=== PATIENT | female | born 1995 | race Caucasian/White ===

== ENCOUNTER 2024-09-27 10:14 | Outpatient (AMB) | payer OTHER, MEDICAID, SELFPAY ==
[2024-09-27 10:27] VITALS: BP 114/76; PULSE 72; RESP 18; TEMP 35.7; O2SAT 97; BMI 26.1
--- NOTE | 2024-09-27 10:27 | OBCLNT_ITS ---
Vital Signs 09/27/24 10:27 Height 1.63 m Height Method Stated Weight 69.003 kg Weight Measurement Method Standing Scale BMI 26.1 BP 114/76 Blood Pressure Source Automatic Cuff Blood Pressure Location Left Upper Arm Position Sitting Respiration 18 Pulse 72 Pulse Source Monitor Temp 96.2 F L Temp Source Oral Pulse Oximetry (%) 97 Oxygen Delivery Method Room Air Allergies/Home Meds Allergies & Medications Allergies No Known Allergies Allergy (Verified 09/27/24 10:28) Medication Reconciliation No Known Home Medications 09/27/24 [History Confirmed 09/27/24] Intake Visit Data Collection New Patient or Established: New Patient (never been to [facility]) Reason for Visit:: OB INITAL Seen by Clinical Staff ONLY (RN/MA): No Environmental Engineering Professor Required: No Do You Feel Safe at Home: Yes Authorities Contacted: N/A PCP or OBGYN visit in last 3 months: Yes Hx Now: Yes Are you currently on any form of Control: No Last menstrual period: 02/14/24 Pain Present Currently: No Pain Scale Used: Issa-Hill/Numerical Pain scale:: 0 Smoking Status Smoking Status: Never smoker Questionnaires Covid-19 Vaccine Questionnaire Has patient been vacinated for Covid-19 Have you been vacinated for Covid-19: No PHQ-9 PHQ-2 Over the last 2 weeks, how often have you been bothered by any of the following problems? 1. Little interest or pleasure in doing things: not at all 2. Feeling down, depressed, or hopeless: not at all Total score: 0 PHQ-9 3. Trouble falling or staying asleep, or sleeping too much: Not at all 4. Feeling tired or having little energy: Not at all 5. Poor appetite or overeating: Not at all 6. Feeling bad about yourself - or that you are a failure or have let yourself or your family down: Not at all 7. Trouble concentrating on things, such as reading the newspaper or watching television: Not at all 8. Moving or speaking so slowly that other people could have noticed? - Or the opposite - being so fidgety or restless that you have been moving around a lot more than usual: not at all 9. Thoughts that you would be better off or of hurting yourself in some way: Not at all Total score: 0 If you checked off any problems, how difficult have these problems made it for you to do your work, take care of things at home, or get along with other people?: not difficult at all Source: Developed by Drs. Cleveland Dorsey, Kaylee Kimble, Jean-Paul Irene and colleagues, with an educational emre from [employer]. 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 Tobacco History Smoking Status: Never smoker Second Hand Smoke Exposure: No Alcohol History Alcohol Intake: Never Domestic Abuse History Do You Feel Safe at Home: Yes History of Present Illness HPI Narrative The patient is a 28-year-old G1, P0 with a natural Di Di twin transferring care from [facility]. Her due date is 11/20/2024 she is 32 weeks . She just had an ultrasound last week at [facility] revealing both babies to be vertex 1 baby weighed 3 pounds 5 ounces the other 3 pounds 3 ounces I have her records from [facility] and they are up-to-date and on the chart. Today patient denies contractions loss of fluids bleeding she has not been given steroids yet. She is on vitamins iron and folic acid daily. She has not had a hemoglobin checked in a while. She would like to deliver vaginally if at all possible. OB Ultrasound Indication Indication: Position, heart tones Both babies VTX Both have FHTs in 130s-140s OB Ultrasound Ultrasound technique: transabdominal Gestational sac assessment: Presence, location, size, shape: There is a diamniotic dichorionic twin present both in the vertex presentation cardiac activity noted in 1 twin at 147 the other twin at 154 bpm. TEACHER TUTOR: Past Medical History Additional Operations/Hospitalizations (year & reason): Patient denies any hospitalizations Other Relevant History: Patient denies any significant past medical history OB Initial Visit OB Flowsheet OB Flowsheet Initial Weight: Not Recorded Date -?-?-?-?-?-?-?-?-?-?-?-?- EGA Weight BP Alb Glu CTX Pres Fundal ht FHR Mov Dilation Station Effacement Hx Notes Visit Note 09/27/24 -?-?-?-?-?-?-?-?-?-?-?-?- 32w 2d 69.003 kg 114/76 cephalic 36 130 Di/Di twin s both VTX +FM x 2, no UCs Menstrual History Menstrual reliability: definite Flow: normal Menstrual regularity: regular Monthly: Yes Age at menarche: 15 On control pills at conception: No OB History : 1 Para: 0 Hx # Pregnancies: 0 Hx Total # of Abortions (Spontaneous & Elective): 0 # of Living Children: 0 Infection History & Risk Evaluation History of STDs: none HIV risk evaluation: low risk Hepatitis B risk evaluation: low risk Patient or partner has history of Genital Herpes: No Varicella/chicken pox status: immunized Genetic Screening & History Genetic Screening/Teratology Counseling - Includes patient, baby's father, or anyone in either family with: 1. Patient's age 35 years or older as of estimated date of delivery: No 2. Thalassemia (Maltese, Welsh, Mediterranean, or Background); MCV less than 80: No 3. Neural Tube Defect (Meningomyelocele, Spina Bifida, or Anencephaly): No 4. Congenital Heart Defect: No 5. Down Syndrome: No 6. John-Sachs (Ashkenazi Tenriism, Cajun, Malian Turkish): No 7. Jose R Disease (Ashkenazi Tenriism): No 8. Familial Dysautonomia (Ashkenazi Tenriism): No 9. Sickle Cell Disease or Trait (): No 10. Hemophilia or other blood disorders: No 11. Muscular Dystrophy: No 12. Cystic Fibrosis: No 13. Rodney's Chorea: No 14. Mental Retardation/Autism: No 15. Other inherited genetic or chromosomal disorder: No 16. Maternal Metabolic Disorder (EG,TYPE 1 Diabetes, PKU): No 17. Patient or baby's father had a child with defects not listed above: No 18. Recurrent loss or a stillbirth: No 19. Medications (including supplements, vitamins, herbs or otc drugs)/illicit/recreational drugs/alcohol since last menstrual period: No 20. Any other: No Infection History 1. Live with someone with TB or exposed to TB: No 2. Rash or viral illness since last menstrual period: No 3. Hepatitis B,C: No Other (see comments) Source: [employer] [place] [employer] Office Procedures OB Clinic LOC & Office Proc's Nursing/Assessment Patient Status: Initial/New Patient OB Clinic Nursing Assessment: Medication Reconciliation, Update PMH in EMR and Vital Signs OB Clinic Coordination of Care: Complex Care and Chronic Disease 1-5, Education Complex Pt/Fam, Consent,records obtained, informed consent, Lab and Imaging orders, Results/Orders obtained and Staff clarify orders Special Needs: Heart tones New Patient Charge New Patient Point Assignment: [id number] New Patient Point Charge: DUST BOX WORKER Level 4 ([id number]) Assessment & Plan Diagnosis / Problem List (1) : Status: Acute Qualifiers: Weeks of gestation: 32 weeks Qualified Code(s): Z3A.32 - 32 weeks gestation of Assessment and Plan: labs up-to-date in the chart patient is B+ antibody screen negative hepatitis B surface antigen negative RPR nonreactive HIV negative gonorrhea chlamydia -1-hour glucose was normal at 109. NIPT was negative. Hemoglobin A1c 4.8. Hepatitis C antibody negative urinalysis negative. (2) Supervision of high risk in third trimester: Status: Acute (3) Dichorionic diamniotic twin gestation: Status: Acute Qualifiers: Trimester: third trimester Qualified Code(s): O30.043 - Twin , dichorionic/diamniotic, third trimester Assessment and Plan: Patient is 32 weeks with a dichorionic diamniotic twin . Will start NSTs at 34 weeks. If patient goes to triage she is to get steroids. If not she will get them at 34 weeks. She does desire a vaginal delivery. Risk of transfusion was explained to the patient in detail risk of bleeding. The fact the patient will need to deliver in the operating room with a double set up was explained. All questions were answered. Patient will follow-up weekly in my office. We will check a CBC today. She has another ultrasound scheduled with [facility] 10/19/2024. (4) Anemia affecting : Status: Acute Qualifiers: Trimester: third trimester Qualified Code(s): O99.013 - Anemia complicating , third trimester
== END 2024-09-27 11:08 | disposition home or self-care (01) ==
LOC: HODSOBC 10:14
PROVIDERS: Supervising Provider Obstetrics & Gynecology; Visit Provider Obstetrics & Gynecology
DX: O09.893 Supervision of other high risk pregnancies, third trimester (principal); Z3A.32 32 weeks gestation of pregnancy; O30.043 Twin pregnancy, dichorionic/diamniotic, third trimester; O99.013 Anemia complicating pregnancy, third trimester
CPT/HCPCS: 99204; G0463

== ENCOUNTER 2024-10-06 10:44 | Outpatient (AMB) | payer OTHER, MEDICAID, SELFPAY ==
[2024-10-06 11:31] VITALS: BP 124/77; PULSE 81; RESP 19; TEMP 36.7; O2SAT 96; BMI 26.9
--- NOTE | 2024-10-06 11:31 | OBCLNT_ITS ---
Vital Signs 10/06/24 11:31 Height 1.63 m Height Method Stated Weight 71.384 kg Weight Measurement Method Standing Scale BMI 26.9 BP 124/77 Blood Pressure Source Automatic Cuff Blood Pressure Location Right Upper Arm Position Sitting Respiration 19 Pulse 81 Pulse Source Monitor Temp 98.0 F Temp Source Temporal Artery Scan Pulse Oximetry (%) 96 Oxygen Delivery Method Room Air Allergies/Home Meds Allergies & Medications Allergies No Known Allergies Allergy (Verified 10/06/24 12:25) Intake Visit Data Collection New Patient or Established: Established Patient (seen at [facility] within 3 years) Reason for Visit:: FOLLOW UP OBC Procurement Engineer Required: No Do You Feel Safe at Home: Yes Authorities Contacted: N/A PCP or OBGYN visit in last 3 months: Yes Date of Last PCP or OBGYN visit: 09/27/24 Hx Now: Yes Are you currently on any form of Control: No Pain Present Currently: No Smoking Status Smoking Status: Never smoker Questionnaires PHQ-9 PHQ-2 Over the last 2 weeks, how often have you been bothered by any of the following problems? 1. Little interest or pleasure in doing things: not at all PHQ-9 8. Moving or speaking so slowly that other people could have noticed? - Or the opposite - being so fidgety or restless that you have been moving around a lot more than usual: not at all Source: Developed by Drs. Cleveland Dorsey, Kaylee Kimble, Jean-Paul Irene and colleagues, with an educational emre from [employer]. 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 Tobacco History Smoking Status: Never smoker Second Hand Smoke Exposure: No Alcohol History Alcohol Intake: Never Domestic Abuse History Do You Feel Safe at Home: Yes Care OB Visit Log OB Flowsheet Initial Weight: Not Recorded Date -?-?-?-?-?-?-?-?-?-?-?-?- EGA Weight BP Alb Glu CTX Pres Fundal ht FHR Mov Dilation Station Effacement Hx Notes Visit Note 09/27/24 -?-?-?-?-?-?-?-?-?-?-?-?- 32w 2d 69.003 kg 114/76 cephalic 36 130 Di/Di twin s both VTX +FM x 2, no UCs 10/06/24 -?-?-?-?-?-?-?-?-?-?-?-?- 33w 4d 71.384 kg 124/77 cephalic 37 140 active Di/d i twins both vertex Plus movement occasional contractions some spotting. Sent over to OB triage for further evaluation. MARYELLEN Calculator Estimated Delivery Date Method Current WG Current Estimate 11/20/24 LMP (Certain) 33w 4d Other Estimates 11/15/24 Ultrasound #1 34w 2d Comments: 28-year-old G1, P0 Natural diamniotic/ dichorionic twins Transfer of care to Dr. Coleman at 32 weeks Have records on chart: B +/antibody screen negative/rubella immune/RPR nonreactive/HIV negative/hepatitis B surface antigen negative/GC chlamydia negative/NIPT normal/1 hour glucose 109 Patient referred to MFM's for ultrasounds. On chart. Expected Delivery Route/Plan Patient desires to deliver vaginally if possible. Discussed double set up in OR. Discussed possibility of emergency . Discussed scheduled if the babies are different size and not vertex. Specific Issue/Plans Dichorionic diamniotic twins Notes Visit Date: 10/06/24 Last Updated by: Mindi Donohue (OB Clinic)MD Has repeat growth ultrasound with maternal- medicine 10/20/2023. Office Procedures OB Clinic LOC & Office Proc's Nursing/Assessment Patient Status: Established Patient OB Clinic Nursing Assessment: BP Monitoring, Medication Reconciliation, Update PMH in EMR and Vital Signs OB Clinic Coordination of Care: Complex Care and Chronic Disease 1-5, Consent,records obtained, informed consent, Lab and Imaging orders and Results/Orders obtained Special Needs: Heart tones Established Patient Charge Established Patient Point Assignment: 125 Established Patient Point Charge: EP Level 4 (120-155) Assessment & Plan Diagnosis / Problem List (1) Dichorionic diamniotic twin gestation: Status: Acute Qualifiers: Trimester: third trimester Qualified Code(s): O30.043 - Twin , dichorionic/diamniotic, third trimester Assessment and Plan: Sent over to OB triage for steroids and NST. Return in 24 hours. Schedule NSTs weekly starting next week. (2) Anemia affecting : Status: Acute Qualifiers: Trimester: third trimester Qualified Code(s): O99.013 - Anemia complicating , third trimester Assessment and Plan: Increase daily iron. (3) Supervision of high risk in third trimester: Status: Acute (4) : Status: Acute Qualifiers: Weeks of gestation: 34 weeks Qualified Code(s): Z3A.34 - 34 weeks gestation of
== END 2024-10-06 11:49 | disposition home or self-care (01) ==
LOC: HODSOBC 10:44
PROVIDERS: PCP Obstetrics & Gynecology; Referring Provider Obstetrics & Gynecology; Supervising Provider Obstetrics & Gynecology; Visit Provider Obstetrics & Gynecology
DX: O09.893 Supervision of other high risk pregnancies, third trimester (principal); O30.043 Twin pregnancy, dichorionic/diamniotic, third trimester; O99.013 Anemia complicating pregnancy, third trimester; Z3A.33 33 weeks gestation of pregnancy
CPT/HCPCS: 99214; G0463

== ENCOUNTER 2024-10-06 12:07 | Observation (INO) | payer BC, MEDICAID, SELFPAY ==
[2024-10-06] VITALS (11 sets, daily range): BP systolic 111; BP diastolic 76; PULSE 64–85; RESP 18–98; TEMP 36.8; O2SAT 97–100; BMI 27.1
[2024-10-06] MEDS: BETAMET ACET/BETAMET NA PH (Celestone) 6 MG/ML VIAL 12 MG IM (12:30)
== END 2024-10-06 13:15 | disposition home or self-care (01) ==
PROVIDERS: Admitting Provider Obstetrics & Gynecology; Visit Provider Obstetrics & Gynecology
DX: Z34.03 Encounter for supervision of normal first pregnancy, third trimester (principal); Z3A.33 33 weeks gestation of pregnancy
CPT/HCPCS: 59899; 87081; 96372; J0702

== ENCOUNTER 2024-10-07 13:15 | Outpatient (CLI) | payer BC, MEDICAID, SELFPAY ==
[2024-10-07 13:45] VITALS: BP 115/68; PULSE 85; RESP 18; RESP 98; TEMP 36.9
[2024-10-07] MEDS: BETAMET ACET/BETAMET NA PH (Celestone) 6 MG/ML VIAL 12 MG IM (14:32)
== END 2024-10-07 14:35 | disposition home or self-care (01) ==
LOC: S4S1 13:16 → S4SX 13:16
PROVIDERS: Referring Provider Obstetrics & Gynecology; Visit Provider Obstetrics & Gynecology
DX: Z34.03 Encounter for supervision of normal first pregnancy, third trimester (principal); Z36.9 Encounter for antenatal screening, unspecified; Z3A.33 33 weeks gestation of pregnancy
CPT/HCPCS: 59025; 96372; J0702

== ENCOUNTER 2024-10-13 10:45 | Outpatient (AMB) | payer BC, MEDICAID, SELFPAY ==
--- NOTE | 2024-10-13 11:58 | AMB.OBVISIT ---
Vital Signs 10/13/24 12:00 Weight 70.874 kg Weight Measurement Method Standing Scale BP 125/84 Blood Pressure Source Automatic Cuff Blood Pressure Location Left Upper Arm Position Sitting Respiration 18 Pulse 74 Pulse Source Monitor Temp 97.2 F Temp Source Oral Pulse Oximetry (%) 99 Oxygen Delivery Method Room Air Allergies/Home Meds Allergies & Medications Allergies No Known Allergies Allergy (Verified 10/13/24 12:58) Medication Reconciliation vits no.130-ferrous fum 27 mg iron-folic acid 800 mcg tablet ( Vitamin) 1 tab PO .q day 10/06/24 [History Confirmed 10/13/24] Intake Visit Data Collection New Patient or Established: Established Patient (seen at [facility] within 3 years) Reason for Visit:: OBC Seen by Clinical Staff ONLY (RN/MA): No Business Operations Director Required: No Do You Feel Safe at Home: Yes Authorities Contacted: N/A PCP or OBGYN visit in last 3 months: Yes Date of Last PCP or OBGYN visit: 10/07/24 Hx Now: Yes Are you currently on any form of Control: No Pain Present Currently: No Pain Scale Used: Issa-Hill/Numerical Pain scale:: 0 Smoking Status Smoking Status: Never smoker Questionnaires Covid-19 Vaccine Questionnaire Has patient been vacinated for Covid-19 Have you been vacinated for Covid-19: No PHQ-9 PHQ-2 Over the last 2 weeks, how often have you been bothered by any of the following problems? 1. Little interest or pleasure in doing things: not at all 2. Feeling down, depressed, or hopeless: not at all Total score: 0 PHQ-9 3. Trouble falling or staying asleep, or sleeping too much: Not at all 4. Feeling tired or having little energy: Not at all 5. Poor appetite or overeating: Not at all 6. Feeling bad about yourself - or that you are a failure or have let yourself or your family down: Not at all 7. Trouble concentrating on things, such as reading the newspaper or watching television: Not at all 8. Moving or speaking so slowly that other people could have noticed? - Or the opposite - being so fidgety or restless that you have been moving around a lot more than usual: not at all 9. Thoughts that you would be better off or of hurting yourself in some way: Not at all Total score: 0 If you checked off any problems, how difficult have these problems made it for you to do your work, take care of things at home, or get along with other people?: not difficult at all Source: Developed by Drs. Cleveland Dorsey, Kaylee Kimble, Jean-Paul Irene and colleagues, with an educational emre from [employer]. 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 Tobacco History Smoking Status: Never smoker Second Hand Smoke Exposure: No Alcohol History Alcohol Intake: Never Domestic Abuse History Do You Feel Safe at Home: Yes Care OB Visit Log OB Flowsheet Initial Weight: Not Recorded Date <del>?</del> EGA Weight BP Alb Glu CTX Pres Fundal ht FHR Mov Dilation Station Effacement Hx Notes Visit Note 09/27/24 <del>?</del> 32w 2d 69.003 kg 114/76 cephalic 36 130 Di/Di twins both VTX +FM x 2, no UCs 10/06/24 <del>?</del> 33w 4d 71.384 kg 124/77 cephalic 37 140 active Di/di twins both vertex Plus movement occasional contractions some spotting. Sent over to OB triage for further evaluation. 10/13/24 <del>?</del> 34w 4d 70.874 kg 125/84 cephalic 39 135 active DI/Di twins. VTX/Transverse +FM No UC +pressure To L and D for monitoring MARYELLEN Calculator Estimated Delivery Date Method Current WG Current Estimate 11/20/24 LMP (Certain) 34w 4d Other Estimates 11/15/24 Ultrasound #1 35w 2d Expected Delivery Route/Plan All care with Dr. Coleman until 32 weeks when patient was transferred to our clinic . The patient desires to deliver vaginally if possible. Discussed double set up in OR. Discussed possibility of emergency . Discussed scheduled if the babies are different size and not vertex. Specific Issue/Plans PNC Records: B+\antibody negative\rubella immune\RPR nonreactive\HIV negative\hepatitis B surface antigen negative Dichorionic diamniotic twins Notes Visit Date: 10/13/24 Last Updated by: Mindi Donohue (OB Clinic)MD Has an MFM ultrasound 10/20/2023 to L&D today to get monitored check her strep status and get size and positioning on the baby's NSTs next week. Visit Date: 10/06/24 Last Updated by: Mindi Donohue (OB Clinic)MD Has repeat growth ultrasound with maternal- medicine 10/20/2023. Office Procedures OB Clinic LOC & Office Proc's Nursing/Assessment Patient Status: Established Patient OB Clinic Nursing Assessment: Medication Reconciliation, Update PMH in EMR and Vital Signs OB Clinic Coordination of Care: Education Complex Pt/Fam, Consent,records obtained, informed consent, Lab and Imaging orders, Results/Orders obtained and Staff clarify orders Special Needs: Heart tones Established Patient Charge Established Patient Point Assignment: 115 Established Patient Point Charge: EP Level 3 (80-115)
[2024-10-13 12:00] VITALS: BP 125/84; PULSE 74; RESP 18; TEMP 36.2; O2SAT 99
== END 2024-10-13 12:24 | disposition home or self-care (01) ==
LOC: HODSOBC 10:45
PROVIDERS: PCP Obstetrics & Gynecology; Referring Provider Obstetrics & Gynecology; Supervising Provider Obstetrics & Gynecology; Visit Provider Obstetrics & Gynecology
DX: O09.893 Supervision of other high risk pregnancies, third trimester (principal); Z3A.34 34 weeks gestation of pregnancy; O30.043 Twin pregnancy, dichorionic/diamniotic, third trimester
CPT/HCPCS: 99213; G0463

== ENCOUNTER 2024-10-13 12:39 | Observation (INO) | payer BC, MEDICAID, SELFPAY ==
[2024-10-13] VITALS (31 sets, daily range): BP systolic 125; BP diastolic 84; PULSE 65–98; RESP 18–97; TEMP 37.4; O2SAT 92–98; BMI 26.8
--- NOTE | 2024-10-13 13:12 | XR_ITS ---
Examination: Complete OB ultrasound greater than 14 weeks, twin A Date and time of exam: October 13, 2024 1401 hours INDICATIONS: Twin gestations unknown presentation Findings: Viable twin A cephalic presentation Cardiac motion 140 BPM Placenta anterior grade 3 Umbilical cord insertion seen Amniotic fluid index 9.9 cm Mild right hydronephrosis spine maternal left Cervix 3.1 cm Ovaries are obscured by bowel gas Composite estimated gestational age based on BPD, head circumference, abdominal circumference, femur length is 35 weeks 3 days Estimated weight 2508 g Survey of intracranial anatomy, spinal anatomy, abdominal anatomy, four-chamber heart performed with no abnormalities identified. Impression: Viable twin A cephalic presentation. Examination: Complete OB ultrasound greater than 14 weeks twin B Date and time of exam: October 13, 2024 1404 hours INDICATIONS: Twin gestations, and noted presentation Findings: Viable twin B breech presentation Cardiac motion 133 BPM Placenta anterior grade 3 Vessel CORD insertion seen Amniotic fluid index 9.9 cm spine maternal right Cervix 3.1 cm Ovaries are obscured by bowel gas Composite estimated gestational age based on BPD, head circumference, abdominal circumference, femur length is 32 weeks 6 days Estimated weight 2037 g. Survey of intracranial anatomy, spinal anatomy, abdominal anatomy, four-chamber heart performed with no abnormalities identified. Impression: Viable twin B breech presentation.
--- NOTE | 2024-10-13 13:32 | XR_ITS ---
Examination: Biophysical profile, ultrasound TWIN A Date and time of exam: October 13, 2024 1349 hours INDICATIONS: Twin gestations, unknown presentation Technique: Multiple transabdominal sonographic images of the pelvis abdomen obtained. Attention is directed to the breathing movement, gross body movement, amniotic fluid volume and tone. Findings: Amniotic fluid index 11.2 cm Total biophysical profile is 8 of 8. breathing movement is 2. Gross body movement is 2. tone is 2. Qualitative amniotic fluid volume is 2 Impression: Biophysical profile is 8 of 8. Twin A Examination: Biophysical profile, ultrasound twin B INDICATIONS: Twin gestations unknown presentation Date and time of exam: October 13, 2024 1359 hours INDICATIONS: Unknown presentation Technique: Multiple transabdominal sonographic images of the pelvis abdomen obtained. Attention is directed to the breathing movement, gross body movement, amniotic fluid volume and tone. Findings: Amniotic fluid index 11.2 cm Total biophysical profile is 8 of 8. breathing movement is 2. Gross body movement is 2. tone is 2. Qualitative amniotic fluid volume is 2 Impression: Biophysical profile is 8 of 8. Twin B
--- NOTE | 2024-10-13 15:55 | PRELIM_ITS ---
Obstetric twin ultrasound. October 13, 2024 at 1349 hours Clinical history: dec FM, 34w4d, di/di twins Technique: Real-time ultrasound was performed using Duplex scanning including arterial inflow, venous outflow, color and spectral Doppler analysis of both ovaries. Comparison: No prior study is available for comparison. Findings: There is twin intrauterine gestation with live fetuses. Twin A: There is a gravid uterus with a live fetus in cephalic presentation of mean gestational age 35 weeks and 3 days (by biometry). cardiac activity is present at a heart rate of 140 beats per minute. The placenta is anterior in location, maturity grade III. There is no evidence of placenta previa or retroplacental hemorrhage. Amniotic fluid is adequate (RAYMOND = 9.9 cm). Estimated weight is 2508.1 grams+/- 371 grams. Estimated due date by ultrasound is 11/14/2024. right kidney: There is mild right hydronephrosis (image 13, 14/96). Biometry: BPD = 9.10 cm (36 weeks 6 days) HC = 32.97 cm (37 weeks 4 days) AC = 31.20 cm (35 weeks 1 day) FL = 6.21 cm (32 weeks 1 day) The cervical length measures 3.1 cm. Biophysical Profile: Breathing : 2 Tone : 2 Amniotic fluid : 2 Movement : 2 BPP Score : 8/8 Twin B: There is a gravid uterus with a live fetus in breech presentation of mean gestational age 32 weeks and 6 days (by biometry). cardiac activity is present at a heart rate of 133 beats per minute. The placenta is anterior in location, maturity grade III. There is no evidence of placenta previa or retroplacental hemorrhage. Amniotic fluid is adequate (RAYMOND = 9.9 cm). Estimated weight is 2037.3 grams+/- 302 grams. Estimated due date by ultrasound is 12/02/2024. Biometry: BPD = 8.04 cm (32 weeks 2 days) HC = 30.53 cm (34 weeks 0 days) AC = 29.05 cm (33 weeks 0 days) FL = 6.14 cm (31 weeks 6 days) The cervical length measures 3.1 cm. Biophysical Profile: Breathing : 2 Tone : 2 Amniotic fluid : 2 Movement : 2 BPP Score : 8/8 Impression: Twin A: Gravid uterus with a single live fetus in cephalic presentation of mean gestational age 35 weeks and 3 days. Mild right hydronephrosis ( right kidney). Normal biophysical profile as recorded by the lead radiologic technologist. Twin B: Gravid uterus with a single live fetus in breech presentation of mean gestational age 32 weeks and 6 days. Normal biophysical profile as recorded by the lead radiologic technologist. Report Electronically Signed By: Nicolás Snowden 10/13/2024 3:54:47 PM [EST]
--- NOTE | 2024-10-13 16:40 | PRELIM_ITS ---
Obstetric twin ultrasound. October 13, 2024 at 1349 hours Clinical history: dec FM, 34w4d, di/di twins Technique: Real-time ultrasound was performed using Duplex scanning including arterial inflow, venous outflow, color and spectral Doppler analysis of both ovaries. Comparison: No prior study is available for comparison. Findings: There is twin intrauterine gestation with live fetuses. Twin A: There is a gravid uterus with a live fetus in cephalic presentation of mean gestational age 35 weeks and 3 days (by biometry). cardiac activity is present at a heart rate of 140 beats per minute. The placenta is anterior in location, maturity grade III. There is no evidence of placenta previa or retroplacental hemorrhage. Amniotic fluid is adequate (RAYMOND = 9.9 cm). Estimated weight is 2508.1 grams+/- 371 grams. Estimated due date by ultrasound is 11/14/2024. right kidney: There is mild right hydronephrosis (image 13, 14/96). Biometry: BPD = 9.10 cm (36 weeks 6 days) HC = 32.97 cm (37 weeks 4 days) AC = 31.20 cm (35 weeks 1 day) FL = 6.21 cm (32 weeks 1 day) The cervical length measures 3.1 cm. Biophysical Profile: Breathing : 2 Tone : 2 Amniotic fluid : 2 Movement : 2 BPP Score : 8/8 Twin B: There is a gravid uterus with a live fetus in breech presentation of mean gestational age 32 weeks and 6 days (by biometry). cardiac activity is present at a heart rate of 133 beats per minute. The placenta is anterior in location, maturity grade III. There is no evidence of placenta previa or retroplacental hemorrhage. Amniotic fluid is adequate (RAYMOND = 9.9 cm). Estimated weight is 2037.3 grams+/- 302 grams. Estimated due date by ultrasound is 12/02/2024. Biometry: BPD = 8.04 cm (32 weeks 2 days) HC = 30.53 cm (34 weeks 0 days) AC = 29.05 cm (33 weeks 0 days) FL = 6.14 cm (31 weeks 6 days) The cervical length measures 3.1 cm. Biophysical Profile: Breathing : 2 Tone : 2 Amniotic fluid : 2 Movement : 2 BPP Score : 8/8 Impression: Twin A: Gravid uterus with a single live fetus in cephalic presentation of mean gestational age 35 weeks and 3 days. Mild right hydronephrosis ( right kidney). Recommend sonographic follow- up. Normal biophysical profile as recorded by the cat scan technologist. Twin B: Gravid uterus with a single live fetus in breech presentation of mean gestational age 32 weeks and 6 days. Normal biophysical profile as recorded by the cat scan technologist. Report Electronically Signed By: Amanda Yanez 10/13/2024 4:39:38 PM [EST]
== END 2024-10-13 15:22 | disposition home or self-care (01) ==
PROVIDERS: Admitting Provider Obstetrics & Gynecology; Visit Provider Obstetrics & Gynecology
DX: O26.893 Other specified pregnancy related conditions, third trimester (principal); R25.2 Cramp and spasm; O30.003 Twin pregnancy, unspecified number of placenta and unspecified number of amniotic sacs, third trimester; Z3A.32 32 weeks gestation of pregnancy; O32.1XX0 Maternal care for breech presentation, not applicable or unspecified
CPT/HCPCS: 59899; 76805; 76810; 76819

== ENCOUNTER 2024-10-21 04:09 | Inpatient (IN) | payer BC, MEDICAID, SELFPAY ==
[2024-10-21] VITALS (94 sets, daily range): BP systolic 112–163; BP diastolic 69–109; PULSE 63–118; RESP 14–99; TEMP 36.3–39.4; O2SAT 87–100; BMI 25.9
[2024-10-21] MEDS: fentaNYL CIT INJ 50 mCg/ML AMP 2ML 100 MCG IVP (04:50)
[2024-10-21 05:12] LABS: Basophils % (Auto) 0 % (0-2.5); Eosinophils % (Auto) 0 % (0-10); Hematocrit 44.1 % (36.0-46.0); Hemoglobin 15.1 g/dL (12.0-16.0); Immature Granulocytes % (Auto) 0 % (0-0); Immature Granulocytes Auto 0.05 Thou/mm3 (0.00-0.00); Lymphocytes # (Auto) 2.4 Thou/mm3 (1.0-4.8); Lymphocytes % (Auto) 19 % (10-50); Mean Corpuscular HGB Conc 34.2 g/dl (31.0-37.0); Mean Corpuscular Volume 82 fL (80-100); Monocytes # (Auto) 0.6 Thou/mm3 (0.0-0.8); Monocytes % (Auto) 5 % (0-12); Neutrophils # (Auto) 9.6 Thou/mm3 (1.8-7.7); Neutrophils % (Auto) 76 % (37-80); Nucleated Red Blood Cell % 0 /100 WBC (0); Platelet Count 103 Thou/mm3 (140-440); RDW Standard Deviation 46.2 fL (36.4-46.3); Red Blood Count 5.39 Miln/mm3 (4.00-5.20); White Blood Count 12.7 Thou/mm3 (3.6-11.0)
[2024-10-21] MEDS: Ampicillin Inj 2,000 MG in SODIUM CHLORIDE 0.9% (POP) 100 ML 200 MG IV (05:23)
[2024-10-21 06:00] LABS: Syphilis Nonreactive (Nonreactive)
--- NOTE | 2024-10-21 06:00 | PD.LDHP ---
Documentation for date of: 10/21/24 OB Labor/Induct. HPI History of Present Illness Chief complaint: loss of fluid : 1 Para: 0 Term pregnancies: 0 pregnancies: 0 Living children: 0 History of Abortions: Spontaneous and Elective: 0 History of Vaginal deliveries: 0 History of sections: No History of : No Date of last menstrual period: 02/14/24 MARYELLNE: 11/20/24 Gestational Age (weeks): 35 Gestational Age (days): 5 Gestational age based on last menstrual period: 35 History of present illness: Patient presents for loss of fluid that occurred at 0330, yellow/bloody, with continued leaking since. No regular/painful ctx. No overt vaginal bleeding. Normal movement. No fevers/chills. History of Present Dating criteria: LMP confirmed by 2nd trimester US Adequate Care: Yes Narrative: Di-Di twin gestation. Twin A is male. Twin B is female. Patient states [facility] ultrasound on 10/19 showed Twin A [id number], Twin B 5lb4oz. They have been cephalic/cephalic in previous weeks. otherwise only complicated by anemia, taking iron Labs Maternal Blood Type: B Pos Labs: Positive: Rubella Titre and Negative: RPR, Hepatitis B, HIV, Chlamydia, Gonorrhea and Group Beta Strep Narrative: Initial Hgb 10.6 HgbA1c 4.8 NIPT neg 1hr glucola 109 MSAFP neg SMA neg Review of Systems Review of Systems Narrative Review of Systems: Review of Systems Systems Reviewed: All systems reviewed, normal except as documented Constitutional Constitutional: Denies body ache(s), Denies chills, Denies fever(s) and Denies headache(s) ENT Ears, Nose, Mouth, and Throat: Denies headache(s) and Denies vertigo Cardiovascular Cardiovascular: Denies chest pain, Denies palpitations, Denies dyspnea and Denies syncope Respiratory Respiratory: Denies cough, Denies dyspnea Gastrointestinal Gastrointestinal: Denies nausea and Denies vomiting Neurologic Neurologic: Denies convulsions, Denies headache(s), Denies other visual disturbances, Denies syncope and Denies vertigo Past Medical History Family History OTHER FAMILY HX: non-contributory Surgical History SURGICAL: Negative Section Social History SOCIAL: Good social support, partner is present. No tobacco/ETOH/illicit drug use. Past Medical History Comments PMH COMMENT: Benign Meds Home Medications and Allergies Home Medications ?Medication ?Instructions ?Recorded ?Confirmed ?Type vits no.130-ferrous fum 1 tab PO .q day 10/06/24 10/13/24 History 27 mg iron-folic acid 800 mcg tablet ( Vitamin) Allergies Allergy/AdvReac Type Severity Reaction Status Date / Time No Known Allergies Allergy Verified 10/13/24 12:58 OB Exam Physical Exam Vital signs: Temp Pulse Resp BP Pulse Ox 99.0 F 90 19 161/95 H 96 10/21/24 04:18 10/21/24 05:58 10/21/24 04:18 10/21/24 05:58 10/21/24 05:59 Narrative: General: well developed, well nourished, no acute distress, conversant Cardiac: normal heart rate Lungs: breathing without distress Abdomen: soft, gravid, non-tender, no rebound or guarding Extremities: no edema BLE Detailed Labor and Delivery Exam Dilation (cm): 3 Effacement (%): 60 Cervix position: mid station: -2 Consistency: soft Presentation: Vertex Membranes: ruptured Amniotic fluid: thin meconium Baseline heart rate: 130 (twin B 145) monitor accelerations: 15x15 (x2) monitor decelerations: None (x2) intermodal owner operator truck driver variability: Moderate (11-25) (x2) Contraction frequency (min): q2-3min OB Results Labs 10/21/24 04:45 Labs: Short CBC 10/21/24 Range/Units 04:45 WBC 12.7 H (3.6-11.0) Thou/mm3 Hgb 15.1 (12.0-16.0) g/dL Hct 44.1 (36.0-46.0) % Plt Count 103 L (140-440) Thou/mm3 OB Assessment & Plan Assessment and Plan (1) Dichorionic diamniotic twin gestation: Status: Acute Assessment and plan: Ynes is a 29yo with di-di twin gestation at 35&5wk presenting with SROM at 0330, thin meconium. Contractions q2-4min, SCE: 3/60/-2, cephalic. Vitals wnl, benign exam. Reassuring assessment x2. PMhx/ complicated by: Di-Di twin gestation. Twin A is male. Twin B is female. Patient states [facility] ultrasound on 10/19 showed Twin A [id number], Twin B 5lb4oz. Cephalic/Cephalic on ultrasound done upon presentation otherwise only complicated by anemia, taking iron Transfer of care from Dr. Coleman to Dr. Donohue in 3rd trimester Plan: -Admit to L&D -Establish IV, routine labs -CEFM -Clear liquid diet -Crm Functional Analyst/consent re: vs PLTCS. We discussed all r/b/a to both procedures. She had been intending on , but with contractions becoming more uncomfortable, she is considering c/s. After discussing all r/b/a and allowing her time to consider and speak with her partner, she would like to get epidural and proceed with labor with intention for . Will delivery with double set up in the OR in the event we need to transition to at any point. -GBS status: negative -Anticipate -Safe to proceed (2) SROM (spontaneous rupture of membranes): Status: Acute (3) Supervision of high risk in third trimester: Status: Acute (4) Anemia affecting : Status: Acute (1) Dichorionic diamniotic twin gestation Qualifiers: Trimester: third trimester Qualified Code(s): O30.043 - Twin , dichorionic/diamniotic, third trimester (4) Anemia affecting Qualifiers: Trimester: third trimester Qualified Code(s): O99.013 - Anemia complicating , third trimester
[2024-10-21] MEDS: RINGERS LACTATED 1000 ML 1,000 ML 100 ML IV (07:25)
[2024-10-21] MEDS: MISOPROSTOL 200 mCg TABLET 800 MCG PR (09:22)
[2024-10-21] MEDS: METHYLERGONOVINE INJ 0.2 MG/ML VIAL IM (09:22)
[2024-10-21] MEDS: ACETAMINOPHEN IVPB 1,000 MG/100 ML VIAL 250 MG IV (10:00)
[2024-10-21] MEDS: DiphenhydrAMINE INJ 50 MG/ML VIAL 12.5 MG IVP ×2 (10:58→12:04)
[2024-10-21 11:20] LABS: Amphetamine/Metham Scrn,Ur OB Negative (Negative); Benzoylecgonine Screen, Ur OB Negative (Negative); Opiate Screen,Urine OB Negative (Negative); THC Screen,Urine OB Negative (Negative)
[2024-10-21] MEDS: LABETALOL INJ 5 MG/ML VIAL 20 ML 20 MG IVP ×2 (11:37→12:05)
[2024-10-21] MEDS: KETOROLAC INJ 30 MG/ML VIAL IVP (12:07)
--- NOTE | 2024-10-21 12:43 | PD.EVENT ---
Documentation for date of: 10/21/24 Event Note Event Note: Right after delivery patient had shaking and temp went to 102F, bp went up to severe range, she developed a diffuse rash over her chest. Normal pulse, no issues with breathing. Patient totally normotensive and afebrile up until this event. No concerns for HTN or infection since she only had ROM for 6 hours total. Presumptive drug-related reaction to either methergine, cytotec or pitocin (the medications given right after delivery to prevent hemorrhage). After tylenol 1000mg PO, benadryl 12.5mg IV, and labetalol 20mg IV x1, temperature has decreased to 100F, rash has resolved. Most recent bp 160's systolic, advised RN if repeat in 5 minutes still severe, give another 20mg IV labetalol dose. Will also give toradol 30mg IV x1 and another benadryl 12.5mg IV x1. Will continue to closely monitor until full resolution. Christy Ingram MD
[2024-10-21 16:10] LABS: Basophils % (Auto) 0 % (0-2.5); Eosinophils # (Auto) 0.1 Thou/mm3 (0.0-0.5); Eosinophils % (Auto) 1 % (0-10); Hematocrit 37.9 % (36.0-46.0); Hemoglobin 13.1 g/dL (12.0-16.0); Immature Granulocytes % (Auto) 1 % (0-0); Immature Granulocytes Auto 0.18 Thou/mm3 (0.00-0.00); Lymphocytes # (Auto) 1.4 Thou/mm3 (1.0-4.8); Lymphocytes % (Auto) 7 % (10-50); Mean Corpuscular HGB Conc 34.6 g/dl (31.0-37.0); Mean Corpuscular Hemoglobin 28.4 pg (25.0-35.0); Mean Corpuscular Volume 82 fL (80-100); Monocytes % (Auto) 5 % (0-12); Neutrophils # (Auto) 16.6 Thou/mm3 (1.8-7.7); Neutrophils % (Auto) 86 % (37-80); Nucleated Red Blood Cell # 0.02 Thou/mm3 (0.00-0.00); Nucleated Red Blood Cell % 0 /100 WBC (0); Platelet Count 83 Thou/mm3 (140-440); RDW Standard Deviation 45.6 fL (36.4-46.3); Red Blood Count 4.62 Miln/mm3 (4.00-5.20); White Blood Count 19.3 Thou/mm3 (3.6-11.0)
[2024-10-21] MEDS: DOCUSATE SOD 100 MG CAPSULE PO (20:29)
--- NOTE | 2024-10-21 20:31 | PC.NURSE ---
Access chart to assist primary Nurse.
--- NOTE | 2024-10-21 23:55 | PD.LDDELA1 ---
Data (Multiple) Data Hx Section: No : 1 Term: 0 : 0 Livin Abortions: Spontaneous & Theraputic: 0 Delivery Data A Labor Data Initiation of labor: Spontaneous Induction/Augmentation Agent: None ROM date: 10/21/24 ROM time: 03:00 Amniotic membrane rupture type: Spontaneous Amniotic fluid description: Light Meconium Delivery Data Onset of labor date: 10/21/24 Onset of labor time: 04:00 Complete dilation date: 10/21/24 Complete dilation time: 08:18 [place] delivery date: 10/21/24 [place] delivery time: 08:54 Placenta delivery date: 10/21/24 Placenta delivery time: 09:11 Support person(s) at delivery: FOB Other staff at delivery: Jr Solano CRNA Ramjair, insulation technician Delivery Method Delivery method: Normal Vaginal Delivery Presentation: Vertex Anesthesia Type Anesthesia Type: Epidural Placenta Placenta delivery description: Spontaneous Cord blood sent to lab: Yes cord blood collection: Cord Blood Type EBL Estimated blood loss (ml): 300 Additional Procedures Ynes is a 29yo [id number] s/p uncomplicated of di-di twins at 35&5wk after presenting in early labor with PPROM at 0330. On presentation, SCE was 3/60/-2. She received an epidural in labor. She progressed to C/C/0 at which point she was taken to the OR for delivery. Voice Network Administrator and nursing team were in attendance. With good maternal pushing efforts, twin A's head delivered OA and restituted ARYA. Left anterior shoulder delivered easily followed by posterior shoulder and corpus. Infant had spontaneous cry and was vigorous. Apgars 6/9. Infant placed on maternal abdomen where nose/mouth were suctioned and dried/stimulated. Doppler was removed for twin A and Doppler for twin B was repositioned, FHR remained at baseline. I was able to palpate twin B's head that came down immediately to engage in the upper pelvis. After approximately 1 minute, Twin A's cord was clamped x2 and cut by FOB. Twin A was taken to the warmer. After a few contractions' worth of natural descent, with fundal pressure applied, amniohook was used for AROM of twin B's amniotic sac. Twin B then came to -2 station and patient was able to easily push to deliver within the span of 1 contraction (given small size). Twin B's head delivered OA and restituted ARYA. Left anterior shoulder delivered easily followed by posterior shoulder and corpus. Infant had spontaneous cry and was vigorous. Apgars 8/9. placed on maternal abdomen where nose/mouth were suctioned and infant dried/stimulated. After approximately 1 minute, Twin B's cord was clamped x2 and cut by FOB. Twin B was taken to the warmer. Cord blood from each cord collected for typing. With fundal massage and cord traction, placentas delivered spontaneously and intact. Bimanual massage performed and IV pitocin given per protocol with fundus then firm at u-3cm and hemostasis noted. Inspection of perineum and vagina revealed bilateral labial lacerations which were repaired in routine fashion with 4-0 vicryl- total reapproximation and hemostasis achieved. Small trickle of blood, so sweep just within cervix/RUSH performed which retrieved a small amount of clot. 0.2mg IM methergine given with observed hemostasis after. Cytotec 800mcg was placed [place] as prophylaxis against future bleeding All counts correct x2. Infants were taken to the NICU and patient was taken to recover on unit. Christy Ingram MD Complications Complications: none [place] Data A [place] Data order: 1 [place] length: 47 cm
--- NOTE | 2024-10-22 00:10 | OBDSUM_ITS ---
Data (Multiple) Data Hx Section: No : 1 Term: 0 : 0 Livin Abortions: Spontaneous & Theraputic: 0 Delivery Data B Labor Data Initiation of labor: Spontaneous Induction/Augmentation Agent: Artificial ROM ROM date: 10/21/24 ROM time: 09:03 Amniotic membrane rupture type: Artificial Amniotic fluid description: Clear Delivery Data Onset of labor date: 10/21/24 Onset of labor time: 04:00 Complete dilation date: 10/21/24 Complete dilation time: 08:18 [place] delivery date: 10/21/24 [place] delivery time: 09:07 Placenta delivery date: 10/21/24 Placenta delivery time: 09:11 Stage 1 total time (B): Labor - Stage 1 Duration 4 hours and 18 minutes Stage 2 total time (B): Labor - Stage 2 Duration 49 minutes Stage 3 total time (B): Labor - Stage 3 Duration 4 minutes Delivered by: Christy Ingram Delivery nurse: Destiny Chavez RN & Destiny Tucker RN [place] nurse: KIRSTEN Matias & KIRSTEN Quevedo Respiratory therapist(s) at delivery: Yes ([email or web address]) Bus Cleaner at delivery: Yes (Dr. Heath) Support person(s) at delivery: FOB Delivery Method Delivery method: Normal Vaginal Delivery Presentation: Vertex Anesthesia Type Anesthesia Type: Epidural Placenta Placental delivery description: Spontaneous Cord blood sent to lab: Yes cord blood collection: Cord Blood Type EBL Estimated blood loss (ml): 300 Additional Procedures Ynes is a 29yo [id number] s/p uncomplicated of di-di twins at 35&5wk after presenting in early labor with PPROM at 0330. On presentation, SCE was 3/60/-2. She received an epidural in labor. She progressed to C/C/0 at which point she was taken to the OR for delivery. Bus Cleaner and nursing team were in attendance. With good maternal pushing efforts, twin A's head delivered OA and restituted ARYA. Left anterior shoulder delivered easily followed by posterior shoulder and corpus. had spontaneous cry and was vigorous. Apgars 6/9. Infant placed on maternal abdomen where nose/mouth were suctioned and dried/stimulated. Doppler was removed for twin A and Doppler for twin B was repositioned, FHR remained at baseline. I was able to palpate twin B's head that came down immediately to engage in the upper pelvis. After approximately 1 minute, Twin A's cord was clamped x2 and cut by FOB. Twin A was taken to the warmer. After a few contractions' worth of natural descent, with fundal pressure applied, amniohook was used for AROM of twin B's amniotic sac. Twin B then came to -2 station and patient was able to easily push to deliver within the span of 1 contraction (given small size). Twin B's head delivered OA and restituted ARYA. Left anterior shoulder delivered easily followed by posterior shoulder and corpus. Infant had spontaneous cry and was vigorous. Apgars 8/9. Infant placed on maternal abdomen where nose/mouth were suctioned and dried/stimulated. After approximately 1 minute, Twin B's cord was clamped x2 and cut by FOB. Twin B was taken to the warmer. Cord blood from each cord collected for typing. With fundal massage and cord traction, placentas delivered spontaneously and intact. Bimanual massage performed and IV pitocin given per protocol with fundus then firm at u-3cm and hemostasis noted. Inspection of perineum and vagina revealed bilateral labial lacerations which were repaired in routine fashion with 4-0 vicryl- total reapproximation and hemostasis achieved. Small trickle of blood, so sweep just within cervix/RUSH performed which retrieved a small amount of clot. 0.2mg IM methergine given with observed hemostasis after. Cytotec 800mcg was placed [place] as prophylaxis against future bleeding All counts correct x2. Infants were taken to the NICU and patient was taken to recover on unit. Christy Ingram MD Complications Complications: none Data B [place] Data order: 2 [place] length: 44.5 cm
[2024-10-22 00:47] VITALS: BP 131/87; PULSE 76; RESP 16; TEMP 36.3; O2SAT 97
[2024-10-22 04:14] VITALS: BP 128/86; PULSE 76; RESP 14; TEMP 36.4; O2SAT 97
[2024-10-22] MEDS: DOCUSATE SOD 100 MG CAPSULE PO ×2 (07:59→21:20)
[2024-10-22 08:02] VITALS: BP 128/83; PULSE 86; RESP 16; TEMP 37; O2SAT 99
[2024-10-22 11:43] VITALS: BP 127/78; PULSE 86; RESP 15; TEMP 36.8; O2SAT 98
[2024-10-22 16:47] VITALS: BP 129/78; PULSE 79; RESP 18; TEMP 37; O2SAT 99
[2024-10-22 20:02] VITALS: BP 138/87; PULSE 66; RESP 17; TEMP 36.7; O2SAT 98
[2024-10-23 04:45] VITALS: BP 129/86; PULSE 64; RESP 16; TEMP 36.6; O2SAT 98
[2024-10-23 07:05] VITALS: BP 138/77; PULSE 60; RESP 16; TEMP 36.6; O2SAT 97
--- NOTE | 2024-10-23 07:32 | PD.LDPPPRG ---
Subjective Subjective Interval history: Delivery type: , status post vaginal delivery of di/di twin Patient doing well this morning. No acute complaints. Ambulating, tolerating p.o. and voiding without difficulty. HTN/Pre-Eclampsia screen: No chest pain, shortness of breath, headache, visual changes, epigastric or right upper quadrant pain. Breast-feeding, lochia diminishing. Bowel: Flatus+/ BM+ Exam Vital Signs Temp Pulse Resp BP Pulse Ox O2 Del Method 97.8 F 64 16 129/86 H 98 Room Air 10/23/24 04:45 10/23/24 04:45 10/23/24 04:45 10/23/24 04:45 10/23/24 04:45 10/23/24 04:45 Constitutional Constitutional: no acute distress Routine HEENT Exam Head: Present normocephalic and atraumatic Eye: Present EOMI and PERRL ENT: Present mucous membranes moist Routine Neck Exam Neck: Present supple and trachea midline Routine Respiratory Exam Respiratory: Present chest non-tender, lungs clear, normal breath sounds and no resp distress Routine Cardiovascular Exam Cardiovascular: Present RRR Routine Abdominal Exam Abdominal: Present soft and normoactive bowel sounds Routine Extremities Exam Extremities: Present full ROM Routine Skin Exam Skin: Present intact, dry and warm Routine Neurological Exam Neurological: Present alert, oriented X3 and CN II-XII intact Routine Psychiatric Exam Psychiatric: Present normal affect and normal thought process Objective Labs 10/21/24 15:47 Assessment & Plan Problem List (1) Dichorionic diamniotic twin gestation: Status: Acute (2) SROM (spontaneous rupture of membranes): Status: Acute (3) Supervision of high risk in third trimester: Status: Acute (4) Anemia affecting : Status: Acute (5) Vaginal delivery: Status: Acute Assessment and plan: PPD/POD#2 1. Continue routine care 2. Transition to PO meds. 3. Encourage to ambulate/ breast-feed 4. Anticipate discharge home today. Time Spent With Patient Time: Total time spent is greater than 50% in coordination of care (as documented) at patient's floor/unit and/or counseling patient:
--- NOTE | 2024-10-23 07:33 | PD.LDDS ---
DS: Providers Provider Date of admission: 10/21/24 04:44 Primary care physician: Physician No Primary/Family Admitting Provider: Christy Ingram MD Attending Provider on Admission: Felipe Dorsey MD Consults: 10/21/24 09:28 Referral Routine Comment: Attending Provider on DC: Felipe Dorsey MD Discharging Provider: Felipe Dorsey MD DS: Diagnosis Discharge Diagnosis (1) Vaginal delivery: Status: Acute (2) Dichorionic diamniotic twin gestation: Status: Acute (3) SROM (spontaneous rupture of membranes): Status: Acute Problem List Completed Was Problem List Reviewed/Reconciled?: Yes Summary/Hosp Course Brief History: Patient presents for loss of fluid that occurred at 0330, yellow/bloody, with continued leaking since. No regular/painful ctx. No overt vaginal bleeding. Normal movement. No fevers/chills. Peripartum Data Delivery Method: Normal Vaginal Delivery Time Spent with Patient Time attestation: Total time spent providing and/or coordinating discharge services: Exam Vital Signs Temp Pulse Resp BP Pulse Ox O2 Del Method 97.8 F 64 16 129/86 H 98 Room Air 10/23/24 04:45 10/23/24 04:45 10/23/24 04:45 10/23/24 04:45 10/23/24 04:45 10/23/24 04:45 Discharge Plan Plan Patient Disposition: HOME (Self Care) Patient condition on transfer: Stable Prescriptions/Referrals Prescriptions/Med Rec: New docusate sodium 100 mg Capsule 100 mg PO BID 10 Days Qty: 20 0RF ibuprofen 800 mg tablet 800 mg PO Q8H PRN (Reason: See Comments) 10 Days Qty: 20 0RF docusate sodium [Stool Softener] 100 mg capsule 100 mg PO QDAY 30 Days Qty: 30 0RF ibuprofen 600 mg tablet 600 mg PO Q6H MDD 4 PRN (Reason: fever or pain) 10 Days Qty: 40 0RF Referrals: [facility] ([facility])Mindi MD [Physician] - No Primary/Family,Physician [Primary Care Provider] - Patient/Caregiver Discharge Instructions Discharge Activity: activity as tolerated and other Other Discharge Activity Instructions:: vaginal rest and no heavy lifting more than 10 pounds for 6 weeks Other Discharge Diet Instructions: regular diet Education Materials: After a Vaginal , [facility] [place] Twins Print Language: [place] Activity Restrictions/Additional Instructions: Follow up with Dr. Donohue in 2 to 4 weeks for visit, call clinic for appointment Stand Alone Forms: Alondra Award Info., Patient Portal Info Letter Discharge Order Discharge Orders: Discharge (Routine); Ordered 10/23/24 Ordered By: Felipe Dorsey Planned Discharge Date 10/23/24 (2) Dichorionic diamniotic twin gestation Qualifiers: Trimester: third trimester Qualified Code(s): O30.043 - Twin , dichorionic/diamniotic, third trimester
[2024-10-23] MEDS: DOCUSATE SOD 100 MG CAPSULE PO (08:03)
== END 2024-10-23 10:30 | disposition home or self-care (01) | DRG 807 ==
LOC: S4SX 06:35 → S4NX 08:51
PROVIDERS: Admitting Provider Obstetrics & Gynecology; Visit Provider Obstetrics & Gynecology
DX: O30.043 Twin pregnancy, dichorionic/diamniotic, third trimester (principal); Z37.2 Twins, both liveborn; O77.0 Labor and delivery complicated by meconium in amniotic fluid; Z3A.35 35 weeks gestation of pregnancy; O99.02 Anemia complicating childbirth
CPT/HCPCS: 36415; 76805; 76810; 80307; 84112; 85025; 86780; 86850; 86900; 86901; J0131; J0290; J1200; J1885; J2210; J2590; J2795; J3010; J3490; J7120; S0191; A9270; J1920

== ENCOUNTER 2024-10-21 14:30 | Outpatient (RCR) | payer BC, SELFPAY ==
--- NOTE | 2024-10-18 13:41 | XR_ITS ---
Examination: Biophysical profile, ultrasound Twin A Date and time of exam: October 18, 2024 1411 hours INDICATIONS: Twin gestations, well-being Technique: Multiple transabdominal sonographic images of the pelvis abdomen obtained. Attention is directed to the breathing movement, gross body movement, amniotic fluid volume and tone. Findings: Amniotic fluid index 14.8 cm Total biophysical profile is 8 of 8. breathing movement is 2. Gross body movement is 2. tone is 2. Qualitative amniotic fluid volume is 2 Impression: Biophysical profile is 8 of 8. Twin A Examination: Biophysical profile, ultrasound, twin B Date and time of exam: October 18, 2024 1414 hours INDICATIONS: Twin gestations, well-being Technique: Multiple transabdominal sonographic images of the pelvis abdomen obtained. Attention is directed to the breathing movement, gross body movement, amniotic fluid volume and tone. Findings: Amniotic fluid index 14.8 cm Total biophysical profile is 8 of 8. breathing movement is 2. Gross body movement is 2. tone is 2. Qualitative amniotic fluid volume is 2 Impression: Biophysical profile is 8 of 8. Twin B
[2024-10-18 14:52] VITALS: BP 127/86; PULSE 77; RESP 16; TEMP 36.8
== END 2024-10-21 23:59 | disposition home or self-care (01) ==
LOC: S4S1 14:30
PROVIDERS: Referring Provider Obstetrics & Gynecology; Visit Provider Obstetrics & Gynecology
DX: O30.043 Twin pregnancy, dichorionic/diamniotic, third trimester (principal); O09.93 Supervision of high risk pregnancy, unspecified, third trimester; Z3A.35 35 weeks gestation of pregnancy
CPT/HCPCS: 59025; 76819